=== PATIENT | female | born 1985 | race Caucasian/White ===

== ENCOUNTER 2024-02-17 06:23 | Inpatient (IN) | payer MEDICAID ==
[2024-02-17] VITALS (11 sets, daily range): BP systolic 112–147; BP diastolic 66–99; PULSE 109–122; RESP 18–19; TEMP 97.7–97.9; O2SAT 98
[~2024-02-17] VITALS: Ht 165.1 cm; Wt 67.8 kg
[2024-02-17 07:07] LABS: EOSINOPHILS % 0.5 % (0.0-5.0); HEMATOCRIT. 28.6 % (36.0-48.0); HEMOGLOBIN. 9.7 g/dL (12.0-16.0); LYMPHOCYTES % 14.1 % (20.0-50.0); MEAN CORPUSCULAR HEMOGLOBIN 30.3 pg (28.0-32.0); MEAN CORPUSCULAR HGB CONC 33.9 g/dL (31.0-37.0); MEAN CORPUSCULAR VOLUME 89.3 fL (81.0-99.0); MONOCYTES % 2.1 % (2.0-8.0); NEUTROPHILS % 82.3 % (40.0-76.0); PLATELET 248 x1000/uL (130-400); RED CELL DISTRIBUTION WIDTH 14.9 % (11.6-14.6); WHITE BLOOD COUNT 7.3 x1000/uL (4.5-11.0)
[2024-02-17] MEDS: ONDANSETRON HCL 4MG/2ML INJ IV ONE (07:13)
[2024-02-17 07:28] LABS: CARBON DIOXIDE 23 mEq/L (21-32); CHLORIDE 105 mEq/L (98-107); POTASSIUM 3.9 mEq/L (3.5-5.1); SODIUM 136 mEq/L (136-145)
[2024-02-17 07:30] LABS: INR 1.2; PROTHROMBIN TIME 13.4 sec (9.6-11.0)
[2024-02-17 07:42] LABS: CALCIUM 8.4 mg/dL (8.7-10.4)
[2024-02-17 07:46] LABS: CREATININE 3.8 mg/dL (0.6-1.0); GLUCOSE 161 mg/dL (70-105)
[2024-02-17 07:47] LABS: UREA NITROGEN BLOOD 47 mg/dL (9-23)
[2024-02-17 07:48] LABS: ALBUMIN 2.5 g/dL (3.2-4.8)
[2024-02-17 07:49] LABS: ALANINE AMINOTRANSFERASE 12 IU/L (10-49); ASPARTATE AMINOTRANSFERASE 46 IU/L (<34); BILIRUBIN DIRECT 0.4 mg/dL (<=3.0); BILIRUBIN TOTAL 0.8 mg/dL (0.1-1.0); PROTEIN TOTAL 7.6 g/dL (6.0-8.3)
[2024-02-17] MEDS: SODIUM CHLORIDE 0.9% 1,000 ML IV ONE (08:00)
[2024-02-17] MEDS: MORPHINE SULFATE 4 MG/ML INJ (FOR IV/IM USE) IV ONE (08:02)
[2024-02-17] MEDS ORDERED: GUAIFENESIN 200MG/10ML SUGAR FREE UDC PO PRN (09:15)
[2024-02-17] MEDS ORDERED: MAGNESIUM/ALUMINUM HYDROXIDE/SIMETHICONE 30ML UDC PO PRN (09:15)
[2024-02-17] MEDS: HYDROCODONE/ACETAMINOPHEN 10/325MG TABLET PO PRN (09:46)
[2024-02-17] MEDS: IPRATROPIUM/ALBUTEROL 0.5-3(2.5)MG/3ML NEB HHN PRN (10:49)
[2024-02-17] MEDS: CLONIDINE 0.1MG TABLET PO PRN (11:51)
[2024-02-17] MEDS ORDERED: NITROGLYCERIN 0.4MG TABLET SL SL PRN (13:15)
[2024-02-17] MEDS ORDERED: LACTULOSE 20G/30ML UDC PO PRN (15:30)
[2024-02-17] MEDS ORDERED: PANTOPRAZOLE SODIUM 40 MG/VIAL IV SCH (15:45)
[2024-02-17] MEDS: ONDANSETRON HCL 4MG/2ML INJ IV PRN (19:08)
[2024-02-17] MEDS ORDERED: FAMOTIDINE 20MG TABLET PO SCH (21:00)
[2024-02-17 21:43] LABS: HCG SCREEN NEGATIVE
[2024-02-17 21:45] LABS: IRON 27 ug/dL (50-170)
[2024-02-17 21:48] LABS: CREATINE KINASE MB FRACTION 2.3 ng/mL (0.5-3.6); TOTAL IRON BINDING CAPACITY 198 ug/dl (250-425)
[2024-02-17] MEDS: CLONIDINE 0.1MG TABLET PO SCH (21:48)
[2024-02-17 21:49] LABS: CREATINE KINASE 23 IU/L (34-145)
[2024-02-17 21:59] LABS: TROPONIN I HIGH SENSITIVITY < 4 ng/L (3.0-34)
[2024-02-18] VITALS (13 sets, daily range): BP systolic 116–131; BP diastolic 57–86; PULSE 92–118; RESP 16–19; TEMP 96.7–98.1
[2024-02-18 03:26] LABS: CLARITY URINE TURBID (CLEAR); COLOR URINE DARK YELLOW (YELLOW); GLUCOSE URINE NEGATIVE (NEGATIVE); KETONES URINE NEGATIVE (NEGATIVE); LEUKOCYTE ESTERASE URINE 3+ (NEGATIVE); NITRITE URINE NEGATIVE (NEGATIVE); OCCULT BLOOD URINE 3+ (NEGATIVE); PROTEIN URINE 2+ (NEGATIVE); SPECIFIC GRAVITY URINE 1.018 (1.005-1.030)
[2024-02-18 03:46] LABS: *AMPHETAMINES SCREEN URINE NEGATIVE (NEGATIVE); *BARBITURATES SCREEN URINE NEGATIVE (NEGATIVE); *BENZODIAZEPINES SCREEN URINE NEGATIVE (NEGATIVE)
[2024-02-18 03:47] LABS: *COCAINE SCREEN URINE NEGATIVE (NEGATIVE); CANNABINOID URINE SCREEN NEGATIVE (NEGATIVE); ECSTASY MDMA SCREEN URINE NEGATIVE (NEGATIVE); METHADONE URINE SCREEN NEGATIVE (NEGATIVE); OPIATES URINE SCREEN PRESUMPTIVE POSITIVE (NEGATIVE); PHENCYCLIDINE URINE SCREEN NEGATIVE (NEGATIVE)
[2024-02-18 03:56] LABS: BACTERIA URINE 2+; RBC URINE TNTC /hpf (0-2); SQUAMOUS EPITHELIAL CELL URINE 3+ /lpf (RARE/1+)
[2024-02-18 03:57] LABS: TRICHOMONAS URINE 3+
[2024-02-18] MEDS: CEFTRIAXONE 1GM/50ML 50 ML IV NR (07:29)
[2024-02-18 08:00] LABS: BASOPHILS % 0.7 % (0.0-2.0); EOSINOPHILS % 2.3 % (0.0-5.0); HEMATOCRIT. 25.7 % (36.0-48.0); HEMOGLOBIN. 8.4 g/dL (12.0-16.0); MEAN CORPUSCULAR HGB CONC 32.9 g/dL (31.0-37.0); MEAN CORPUSCULAR VOLUME 91.1 fL (81.0-99.0); MEAN PLATELET VOLUME 8.2 fl (7.4-10.4); MONOCYTES % 4.7 % (2.0-8.0); NEUTROPHILS % 68.3 % (40.0-76.0); PLATELET 254 x1000/uL (130-400); RED BLOOD CELL COUNT 2.82 mill/uL (4.2-5.4); RED CELL DISTRIBUTION WIDTH 15.1 % (11.6-14.6); WHITE BLOOD COUNT 8.7 x1000/uL (4.5-11.0)
[2024-02-18 08:03] LABS: INR 1.3
[2024-02-18 08:13] LABS: CALCIUM 9.1 mg/dL (8.7-10.4); CARBON DIOXIDE 23 mEq/L (21-32); CHLORIDE 107 mEq/L (98-107); POTASSIUM 4.4 mEq/L (3.5-5.1); SODIUM 138 mEq/L (136-145)
[2024-02-18 08:18] LABS: ALANINE AMINOTRANSFERASE 10 IU/L (10-49); PROTEIN TOTAL 6.9 g/dL (6.0-8.3)
[2024-02-18 08:19] LABS: ALBUMIN 2.5 g/dL (3.2-4.8); CREATININE 3.3 mg/dL (0.6-1.0); GLUCOSE 90 mg/dL (70-105); TRIGLYCERIDE 126 mg/dL (0-150); UREA NITROGEN BLOOD 33 mg/dL (9-23)
[2024-02-18 08:20] LABS: ASPARTATE AMINOTRANSFERASE 36 IU/L (<34); LDL CHOLESTEROL 103 mg/dL (5-100)
[2024-02-18 08:21] LABS: BILIRUBIN DIRECT 0.4 mg/dL (<=3.0); CHOLESTEROL 137 mg/dL (<200); HDL CHOLESTEROL < 20 mg/dL (>65); PHOSPHORUS 6.3 mg/dL (2.5-4.9)
[2024-02-18 08:22] LABS: BILIRUBIN TOTAL 0.7 mg/dL (0.1-1.0)
[2024-02-18 08:30] LABS: HEPATITIS B SURFACE ANTIGEN NEGATIVE (Negative)
[2024-02-18] MEDS: METRONIDAZOLE 500MG TABLET PO SCH ×2 (08:43→11:00)
[2024-02-18] MEDS: FAMOTIDINE 20MG TABLET PO SCH (08:43)
[2024-02-18 08:51] LABS: HEPATITIS A AB IGM NEGATIVE (Negative); HEPATITIS B CORE AB IGM NEGATIVE (Negative)
[2024-02-18 08:52] LABS: HEPATITIS C AB NON REACTIVE (Neg) (Negative)
[2024-02-18] MEDS: ALBUMIN HUMAN 25GM/100ML (25%) IV PRN (08:52)
[2024-02-18] MEDS ORDERED: LIDOCAINE HCL 1% 10 MG/ML 10ML VIAL ONE (09:51)
[2024-02-18 10:07] LABS: CREATINE KINASE MB FRACTION 1.3 ng/mL (0.5-3.6)
[2024-02-18 10:08] LABS: TROPONIN I HIGH SENSITIVITY 5 ng/L (3.0-34)
[2024-02-18 10:12] LABS: CREATINE KINASE 23 IU/L (34-145)
[2024-02-18] MEDS ORDERED: METRONIDAZOLE 500 MG PREMIX 100 ML IV SCH (10:15)
[2024-02-18] MEDS: SEVELAMER CARBONATE 800 MG TABLET PO SCH (13:02)
[2024-02-18] MEDS: ACETAMINOPHEN 325MG TABLET PO PRN (13:50)
[2024-02-18 15:21] LABS: BODY FLUID MONOCYTES 15 %
[2024-02-18 15:22] LABS: BODY FLUID RBC 3900 /cu mm (0-2000); BODY FLUID WBC 35 /cu mm (0-200)
[2024-02-18] MEDS: SULFAMETHOXAZOLE/TRIMETHOPRIM 400/80MG TAB PO SCH (22:05)
[2024-02-19] VITALS: BP 136/74; PULSE 101; RESP 20; TEMP 97.9
[2024-02-19 07:36] LABS: BASOPHILS % 0.6 % (0.0-2.0); CALCIUM 8.3 mg/dL (8.7-10.4); CARBON DIOXIDE 27 mEq/L (21-32); CHLORIDE 106 mEq/L (98-107); HEMATOCRIT. 23.8 % (36.0-48.0); HEMOGLOBIN. 7.8 g/dL (12.0-16.0); LYMPHOCYTES % 23.1 % (20.0-50.0); MEAN CORPUSCULAR HEMOGLOBIN 29.6 pg (28.0-32.0); MEAN CORPUSCULAR HGB CONC 32.9 g/dL (31.0-37.0); MEAN CORPUSCULAR VOLUME 89.8 fL (81.0-99.0); MEAN PLATELET VOLUME 8.1 fl (7.4-10.4); MONOCYTES % 5.2 % (2.0-8.0); NEUTROPHILS % 68.1 % (40.0-76.0); PLATELET 192 x1000/uL (130-400); POTASSIUM 3.7 mEq/L (3.5-5.1); RED BLOOD CELL COUNT 2.65 mill/uL (4.2-5.4); RED CELL DISTRIBUTION WIDTH 14.5 % (11.6-14.6); SODIUM 138 mEq/L (136-145); WHITE BLOOD COUNT 7.1 x1000/uL (4.5-11.0)
[2024-02-19 07:41] LABS: CREATININE 2.7 mg/dL (0.6-1.0); GLUCOSE 92 mg/dL (70-105)
[2024-02-19 07:42] LABS: UREA NITROGEN BLOOD 25 mg/dL (9-23)
[2024-02-19 07:44] LABS: PHOSPHORUS 4.1 mg/dL (2.5-4.9)
[2024-02-19 08:00] VITALS: BP 124/78; PULSE 88; RESP 20; TEMP 98.1
[2024-02-19] MEDS: FOLIC ACID/VITAMIN B COMP W-C TABLET PO SCH (09:28)
[2024-02-19] MEDS: MAGNESIUM 1 GM IV SCH (10:42)
[2024-02-19 12:00] VITALS: BP 124/88; PULSE 99; RESP 20; TEMP 99.1
[2024-02-19] MEDS ORDERED: METR-167 PO (13:47)
[2024-02-19] MEDS ORDERED: SULF1TAB47 PO (13:47)
[2024-02-19 15:35] VITALS: BP 124/78; PULSE 99; TEMP 98.5; O2SAT 99
== END 2024-02-19 16:30 | disposition home or self-care (01) | DRG 280 ==
LOC: ER 06:23 → 5WST 07:39 → EDBEDREQTM 07:45 → EDBEDREQ 07:45 → 5WST 15:06 → 6WST 15:07
PROVIDERS: ADMIT Internal Medicine; ATTEND Internal Medicine
PROC: 5A1D70Z Performance of Urinary Filtration, Intermittent, Less than 6 Hours Per Day (ICD-10-PCS; 2024-02-17)
PROC: 0W9G3ZZ Drainage of Peritoneal Cavity, Percutaneous Approach (ICD-10-PCS; principal; 2024-02-18)
PROC: 5A1D70Z Performance of Urinary Filtration, Intermittent, Less than 6 Hours Per Day (ICD-10-PCS; 2024-02-18)
DX: K70.31 Alcoholic cirrhosis of liver with ascites (principal); I12.0 Hypertensive chronic kidney disease with stage 5 chronic kidney disease or end stage renal disease; D64.9 Anemia, unspecified; A59.9 Trichomoniasis, unspecified; N39.0 Urinary tract infection, site not specified; Z20.822 Contact with and (suspected) exposure to COVID-19; F10.90 Alcohol use, unspecified, uncomplicated; N18.6 End stage renal disease; Z99.2 Dependence on renal dialysis
CPT/HCPCS: 36415; 49083; 76700; 80048; 80053; 80061; 80076; 80305; 80320; 81003; 82040; 82550; 82553; 82728; 83036; 83540; 83550; 83615; 83735; 84100; 84439; 84443; 84484; 84703; 85025; 86592; 86705; 86709; 87015; 87045; 87340; 87426; 87427; 87449; 87493; 89055; 90935; 94640; 99285; J0696; J2270; J2405; J3475; J3490; J7030; G0480

== ENCOUNTER 2025-04-18 08:11 | Inpatient (IN) | payer SELFPAY ==
[~2025-04-18] VITALS: Ht 165.1 cm; Wt 70.3 kg
[2025-04-18] VITALS (9 sets, daily range): BP systolic 112–135; BP diastolic 66–81; PULSE 66–100; RESP 18; TEMP 36.2–36.6696; O2SAT 99–100
[~2025-04-18 08:11] MED LIST: METR-167 PO; SULF1TAB47 PO
[2025-04-18 08:40] LABS: BASOPHILS % 0.6 % (0.0-2.0); EOSINOPHILS % 5.8 % (0.0-5.0); HEMATOCRIT. 32.6 % (36.0-48.0); HEMOGLOBIN. 11.0 g/dL (12.0-16.0); LYMPHOCYTES % 26.1 % (20.0-50.0); MEAN PLATELET VOLUME 8.8 fl (7.4-10.4); MONOCYTES % 3.2 % (2.0-8.0); NEUTROPHILS % 64.3 % (40.0-76.0); PLATELET 156 x1000/uL (130-400); RED BLOOD CELL COUNT 3.65 mill/uL (4.2-5.4); RED CELL DISTRIBUTION WIDTH 14.0 % (11.6-14.6)
[2025-04-18 08:56] LABS: CREATININE 3.5 mg/dL (0.6-1.0); UREA NITROGEN BLOOD 36.0 mg/dL (9-23)
[2025-04-18] MEDS ORDERED: DEXTROSE 50% WATER 50ML SYRINGE IV PRN (09:30)
[2025-04-18] MEDS ORDERED: HYDRALAZINE 20MG/ML VIAL IV PRN (09:30)
[2025-04-18 09:32] LABS: HCG SCREEN NEGATIVE
[2025-04-18] MEDS ORDERED: ACETAMINOPHEN 325MG TABLET PO PRN ×2 (09:45)
[2025-04-18] MEDS ORDERED: GUAIFENESIN 200MG/10ML SUGAR FREE UDC PO PRN (09:45)
[2025-04-18] MEDS ORDERED: CLONIDINE 0.1MG TABLET PO PRN (09:45)
[2025-04-18] MEDS ORDERED: IPRATROPIUM/ALBUTEROL 0.5-3(2.5)MG/3ML NEB HHN PRN (09:45)
[2025-04-18] MEDS ORDERED: MAGNESIUM/ALUMINUM HYDROXIDE/SIMETHICONE 30ML UDC PO PRN (09:45)
[2025-04-18] MEDS ORDERED: DOCUSATE SODIUM 100MG CAPSULE PO PRN (09:45)
[2025-04-18 10:12] LABS: PHOSPHORUS 3.5 mg/dL (2.5-4.9)
[2025-04-18] MEDS: ENOXAPARIN 30MG/0.3ML SYR SUBCUT SCH (10:40)
[2025-04-18 12:27] LABS: HEPATITIS A AB IGM NEGATIVE (Negative); HEPATITIS B CORE AB IGM NEGATIVE (Negative)
[2025-04-18 12:28] LABS: HEPATITIS C AB NON REACTIVE (Neg) (Negative)
[2025-04-18 12:37] LABS: FOLIC ACID (FOLATE) SERUM 9.80 ng/mL (>5.38)
[2025-04-18 12:38] LABS: VITAMIN B12 SERUM 737 pg/mL (211-911)
[2025-04-18] MEDS: BLOOD SUGAR DIAGNOSTIC STRIP TEST SCH (12:44)
[2025-04-18] MEDS: INSULIN LISPRO 100 UNITS/ML SUBCUT SCH (12:50)
[2025-04-18 14:03] LABS: *AMPHETAMINES SCREEN URINE NEGATIVE (NEGATIVE); *BARBITURATES SCREEN URINE NEGATIVE (NEGATIVE); *BENZODIAZEPINES SCREEN URINE NEGATIVE (NEGATIVE); *COCAINE SCREEN URINE NEGATIVE (NEGATIVE); CANNABINOID URINE SCREEN NEGATIVE (NEGATIVE); ECSTASY MDMA SCREEN URINE NEGATIVE (NEGATIVE); METHADONE URINE SCREEN NEGATIVE (NEGATIVE); OPIATES URINE SCREEN NEGATIVE (NEGATIVE); PHENCYCLIDINE URINE SCREEN NEGATIVE (NEGATIVE)
[2025-04-19] MEDS ORDERED: PANTOPRAZOLE SODIUM 40 MG/VIAL IV SCH (09:00)
[2025-04-19] MEDS ORDERED: FOLIC ACID 1MG TABLET PO SCH (09:00)
[2025-04-19] MEDS ORDERED: MULTIVITAMINS,THER W-MINERALS TABLET PO SCH (09:00)
[2025-04-19] MEDS ORDERED: THIAMINE HCL 100MG TABLET PO SCH (09:00)
== END 2025-04-18 15:25 | disposition left against medical advice (07) | DRG 470 ==
LOC: ER 08:11 → 6WST 09:13 → EDBEDREQTM 09:14 → EDBEDREQ 09:14 → ENRESERV 09:31
PROVIDERS: ADMIT Hospitalist; ATTEND Hospitalist
PROC: 5A1D70Z Performance of Urinary Filtration, Intermittent, Less than 6 Hours Per Day (ICD-10-PCS; principal; 2025-04-18)
DX: I12.0 Hypertensive chronic kidney disease with stage 5 chronic kidney disease or end stage renal disease (principal); N18.6 End stage renal disease; K74.60 Unspecified cirrhosis of liver; R73.9 Hyperglycemia, unspecified; D64.9 Anemia, unspecified; Z53.29 Procedure and treatment not carried out because of patient's decision for other reasons; Z99.2 Dependence on renal dialysis
CPT/HCPCS: 36415; 80048; 80305; 82607; 82728; 82746; 82962; 83036; 83540; 83550; 83735; 84100; 84703; 85025; 85044; 86705; 86709; 87340; 90935; 93005; 99285; J1650